=== PATIENT | female | born 1975 | race African-American/Black ===

== ENCOUNTER 2017-10-29 22:33 | Emergency (ER) | payer SELFPAY ==
--- OUTSIDE RECORDS SUMMARY | 2017-10-29 22:36 | XMS REPORT | Clinical Summary ---
:1975 Author Organization [facility] Address [address] [place] [address] Phone Care Team Providers Name Role Phone Unavailable Primary Care Provider Unavailable Allergies No Known Allergies Current Medications Prescription Sig. Disp. Refills Start Date End Date Status albuterol Take 2.5 mg by Active (PROVENTIL) 2.5 mg nebulization every /3 mL (0.083 %) 6 (six) hours as nebulizer solution needed for Wheezing. traMADol (ULTRAM) Take 1 tablet (50 20 tablet 0 02/17/2017 02/27/2017 50 mg tablet mg total) by mouth every 8 (eight) hours as needed for Pain for up to 10 days. Max Daily Amount: 150 mg nitrofurantoin, Take 1 capsule 14 capsule 0 02/17/2017 02/24/2017 macrocrystal-monohy (100 mg total) by drate, (MACROBID) mouth 2 (two) 100 MG capsule times daily for 7 days. Active Problems Not on file Encounters Date Type Specialty Care Team Description 02/17/2017 Emergency Emergency Medicine Domitila Ruiz Lower abdominal pain MD Ailyn (Primary Dx);Urinary Rod Martinez, tract infection without hematuria, site unspecified after 10/28/2016 Immunizations Name Dates Previously Given Next Due Tdap 01/27/2016 Social History Tobacco Use Types Packs/Day Years Used Date Current Every Day Smoker 0.5 10 Alcohol Use Drinks/Week oz/Week Comments No Sex Assigned at Date Recorded Not on file Last Filed Vital Signs Vital Sign Reading Time Taken Blood Pressure 134/82 02/17/2017 10:38 AM CDT Pulse 48 02/17/2017 10:38 AM CDT Temperature 37 C (98.6 F) 02/17/2017 10:38 AM CDT Respiratory Rate 20 02/17/2017 10:38 AM CDT Oxygen Saturation 98% 02/17/2017 10:38 AM CDT Inhaled Oxygen Concentration - - Weight 54.6 kg (120 lb 5 oz) 02/17/2017 6:13 AM CDT Height - - Body Mass Index - - Plan of Treatment Not on file Results CT abdomen/pelvis with IV contrast (02/17/2017 9:55 AM) Specimen Performing Laboratory RIS Narrative FINAL REPORT TECHNIQUE: CT of the abdomen and pelvis WITH intravenous contrast and WITH oral contrast. Dose modulation, iterative reconstruction, and/or weight-based adjustment of the mA/kV was utilized to reduce the radiation dose to as low as reasonably achievable. INDICATION: 41-year-old woman with right lower quadrant pain. COMPARISON: None. FINDINGS: LOWER THORAX: Unremarkable. HEPATOBILIARY: 1 cm hypodense lesion in segment with density greater than simple fluid. Additional subcentimeter hypodensity in the hepatic dome is too small to characterize. Gallbladder is unremarkable. No biliary ductal dilatation. SPLEEN: No splenomegaly. PANCREAS: No focal masses or ductal dilatation. ADRENALS: No adrenal nodules. KIDNEYS/URETERS: No hydronephrosis, stones, or solid mass lesions. PELVIC ORGANS/BLADDER: Unremarkable. PERITONEUM/RETROPERITONEUM: No free air or fluid. LYMPH NODES: No lymphadenopathy. VESSELS: Unremarkable. GI TRACT: No distention or wall thickening. Normal appendix. BONES AND SOFT TISSUES: Unremarkable. IMPRESSION: No acute abnormalities in the abdomen and pelvis. 1 cm hypodensity in the right liver may be a debris-containing cyst, but is incompletely characterized. Additional subcentimeter hepatic hypodensity is too small for characterization. RECOMMENDATION: Contrast-enhanced abdomen MRI (liver protocol) may be obtained to further characterize hypodensities in the liver. Signed: Ashlyn Thomas MD Report Verified Date/Time:02/17/2017 10:26:22 Reading Location: [facility] C013Y CT Body Reading Room Procedure Note Interface, External Ris In - 02/17/2017 10:28 AM CDT FINAL REPORT TECHNIQUE: CT of the abdomen and pelvis WITH intravenous contrast and WITH oral contrast. Dose modulation, iterative reconstruction, and/or weight-based adjustment of the mA/kV was utilized to reduce the radiation dose to as low as reasonably achievable. INDICATION: 41-year-old woman with right lower quadrant pain. COMPARISON: None. FINDINGS: LOWER THORAX: Unremarkable. HEPATOBILIARY: 1 cm hypodense lesion in segment with density greater than simple fluid. Additional subcentimeter hypodensity in the hepatic dome is too small to characterize. Gallbladder is unremarkable. No biliary ductal dilatation. SPLEEN: No splenomegaly. PANCREAS: No focal masses or ductal dilatation. ADRENALS: No adrenal nodules. KIDNEYS/URETERS: No hydronephrosis, stones, or solid mass lesions. PELVIC ORGANS/BLADDER: Unremarkable. PERITONEUM/RETROPERITONEUM: No free air or fluid. LYMPH NODES: No lymphadenopathy. VESSELS: Unremarkable. GI TRACT: No distention or wall thickening. Normal appendix. BONES AND SOFT TISSUES: Unremarkable. IMPRESSION: No acute abnormalities in the abdomen and pelvis. 1 cm hypodensity in the right liver may be a debris-containing cyst, but is incompletely characterized. Additional subcentimeter hepatic hypodensity is too small for characterization. RECOMMENDATION: Contrast-enhanced abdomen MRI (liver protocol) may be obtained to further characterize hypodensities in the liver. Signed: Ashlyn Thomas MD Report Verified Date/Time: 02/17/2017 10:26:22 Reading Location: [facility] C013Y CT Body Reading Room with platelet count + automated diff (02/17/2017 6:57 AM) Component Value Ref Range WBC 13.3 (H) 4.0 - 10.0 10e3/L RBC 3.57 (L) 4.00 - 5.00 10e6/L Hemoglobin 11.7 (L) 12.0 - 15.0 g/dL Hematocrit 35.3 (L) 36.0 - 45.0 % MCV 98.9 82.0 - 99.0 fL MCH 32.9 27.0 - 33.0 pg MCHC 33.3 32.0 - 36.0 g/dL RDW 12.4 10.3 - 14.2 % Platelets 295 150 - 430 10e3/L MPV 6.9 6.5 - 10.5 fL % Neutros 80 % % Lymphs 14 % % Monos 5 % % Eos 1 % % Baso 1 % # Neutros 10.59 (H) 1.80 - 8.00 10e3/L # Lymphs 1.79 1.48 - 4.50 10e3/L # Monos 0.64 0.00 - 1.30 10e3/L # Eos 0.17 0.00 - 0.50 10e3/L # Baso 0.07 0.00 - 0.20 10e3/L Specimen Performing Laboratory Blood - Arm, [facility], [facility], [facility] [address] [place] [phone] CBC with platelet count + automated diff (02/17/2017 6:57 AM) Specimen Performing Laboratory Blood Narrative The following orders were created for panel order CBC with platelet count + automated diff. Procedure Abnormality Status --------- ------ CBC with platelet count ...[[id number]]AbnormalFinal result Please view results for these tests on the individual orders. Basic Metabolic Panel (02/17/2017 6:57 AM) Component Value Ref Range Sodium 136 135 - 148 meq/L Potassium 3.8 3.6 - 5.5 meq/L Chloride 105 98 - 106 meq/L CO2 26 24 - 32 meq/L BUN 7 (L) 10 - 26 mg/dL Creatinine 0.53 0.50 - 1.20 mg/dL Glucose 103 70 - 110 mg/dL Calcium 9.4 8.5 - 10.5 mg/dL EGFR 156Comment: ESTIMATED GFR IS NOT ACCURATE mL/min/1.73 sq m CREATININE CLEARANCE IN PREDICTING GLOMERULAR FILTRATION RATE. ESTIMATED GFR IS NOT APPLICABLE FOR DIALYSIS PATIENTS. Specimen Performing Laboratory Blood - Arm, [facility], [facility], [facility] [address] [place] [phone] screen, urine (02/17/2017 6:29 AM) Component Value Ref Range Preg Test, Ur Negative Specimen Performing Laboratory Urine - Urine, Clean Catch [facility], [facility], [facility] [address] [place] [phone] Urinalysis w/Microscopic - Clean Catch (02/17/2017 6:29 AM) Component Value Ref Range Color, UA Yellow Clarity, UA Clear Specific [place], UA 1.025 1.001 - 1.035 pH, UA 6.0 5.0 - 8.0 Protein, UA Trace (A) Negative Glucose, UA Negative Negative Ketones, UA Negative Negative Bilirubin, UA Negative Negative Blood, UA Trace (A) Negative Nitrite, UA Positive (A) Negative Leukocytes, UA Trace (A) Negative Urobilinogen, UA 1.0 0.2 - 1.0 mg/dL Bacteria, UA Many Mucus Many RBC, UA <5 /HPF WBC, UA 10-20 /HPF SQUAMOUS EPITHELIAL <5 /HPF Specimen Source Specimen Performing Laboratory Urine - Urine, Clean Catch [facility], [facility], [facility] [address] [place] [phone] after 10/28/2016
--- OUTSIDE RECORDS SUMMARY | 2017-10-29 22:36 | XMS REPORT ---
:1975 Author Organization [facility] Address [address] [place] [address] Care Team Providers Name Role Phone DEMARIO SANCHEZ Unavailable Unavailable Problems This patient has no known problems. Allergies, Adverse Reactions, Alerts This patient has no known allergies or adverse reactions. Medications This patient has no known medications. Results Test Description Test Time Test Comments Text Results Atomic Results Result Comments CT, ABDOMEN 2017-02-17 Reason for FINAL REPORT 10:26:00 exam:->abdominal TECHNIQUE: CT of the abdomen and painIs the patient pelvis WITH intravenous contrast and ?->NoWhat is WITH oral contrast. Dose modulation, the patient's iterative reconstruction, and/or sedation weight-based adjustment of the mA/kV requirement?->No was utilized to reduce the radiation Sedation dose to as low as reasonably achievable. INDICATION: 41-year-old woman with right lower quadrant pain. COMPARISON: None. FINDINGS: LOWER THORAX: Unremarkable. HEPATOBILIARY: 1 cm hypodense lesion in segment with density greater than simple fluid. Additional subcentimeter hypodensity in the hepatic dome is too small to characterize. Gallbladder is unremarkable. No biliary ductal dilatation.SPLEEN: No splenomegaly.PANCREAS: No focal masses or ductal dilatation. ADRENALS: No adrenal nodules.KIDNEYS/URETERS: No hydronephrosis, stones, or solid mass lesions.PELVIC ORGANS/BLADDER: Unremarkable. PERITONEUM/RETROPERITONEUM: No free air or fluid.LYMPH NODES: No lymphadenopathy.VESSELS: Unremarkable. GI TRACT: No distention or wall thickening. Normal appendix. BONES AND SOFT TISSUES: Unremarkable. IMPRESSION:No acute abnormalities in the abdomen and pelvis. 1 cm hypodensity in the right liver may be a debris-containing cyst, but is incompletely characterized. Additional subcentimeter hepatic hypodensity is too small for characterization. RECOMMENDATION:Contrast-enhanced abdomen MRI (liver protocol) may be obtained to further characterize hypodensities in the liver. Signed: Ashlyn Thomas MDReport Verified Date/Time: 02/17/2017 10:26:22 Reading Location: [facility] C013Y CT Body Reading Room C METABOLIC PANEL 2017-02-17 07:14:00 Test Item Value Reference Range Comments SODIUM (BEAKER) (test 136 meq/L 135-148 vrzj=433) POTASSIUM (BEAKER) (test 3.8 meq/L 3.6-5.5 ejqg=620) CHLORIDE (BEAKER) (test 105 meq/L 98-106 ldyi=034) CO2 (BEAKER) (test 26 meq/L 24-32 ypdj=264) BLOOD UREA NITROGEN 7 mg/dL 10-26 (BEAKER) (test crpm=414) CREATININE (BEAKER) (test 0.53 mg/dL 0.50-1.20 manj=138) GLUCOSE RANDOM (BEAKER) 103 mg/dL 70-110 (test kyev=620) CALCIUM (BEAKER) (test 9.4 mg/dL 8.5-10.5 cggx=008) EGFR (BEAKER) (test 156 mL/min/1.73 sq m ESTIMATED GFR IS NOT ugat=9234) ACCURATE CREATININE CLEARANCE IN PREDICTING GLOMERULAR FILTRATION RATE. ESTIMATED GFR IS NOT APPLICABLE FOR DIALYSIS PATIENTS. CBC W/PLT COUNT & AUTO [id number] 07:10:00 Test Item Value Reference Range Comments WHITE BLOOD CELL COUNT (BEAKER) (test 13.3 10e3/ L 4.0-10.0 tycy=917) RED BLOOD CELL COUNT (BEAKER) (test elaq=379) 3.57 10e6/ L 4.00-5.00 HEMOGLOBIN (BEAKER) (test stvc=099) 11.7 g/dL 12.0-15.0 HEMATOCRIT (BEAKER) (test eawe=506) 35.3 % 36.0-45.0 MEAN CORPUSCULAR VOLUME (BEAKER) (test 98.9 fL 82.0-99.0 oleb=418) MEAN CORPUSCULAR HEMOGLOBIN (BEAKER) (test 32.9 pg 27.0-33.0 hqcn=685) MEAN CORPUSCULAR HEMOGLOBIN CONC (BEAKER) 33.3 g/dL 32.0-36.0 (test rqwc=485) RED CELL DISTRIBUTION WIDTH (BEAKER) (test 12.4 % 10.3-14.2 gazv=050) PLATELET COUNT (BEAKER) (test aggz=058) 295 10e3/ L 150-430 MEAN PLATELET VOLUME (BEAKER) (test cllo=643) 6.9 fL 6.5-10.5 NEUTROPHILS RELATIVE PERCENT (BEAKER) (test 80 % nmkp=084) LYMPHOCYTES RELATIVE PERCENT (BEAKER) (test 14 % rugd=919) MONOCYTES RELATIVE PERCENT (BEAKER) (test 5 % idvt=948) EOSINOPHILS RELATIVE PERCENT (BEAKER) (test 1 % tshc=550) BASOPHILS RELATIVE PERCENT (BEAKER) (test 1 % wvzn=750) NEUTROPHILS ABSOLUTE COUNT (BEAKER) (test 10.59 10e3/ L 1.80-8.00 zdtg=175) LYMPHOCYTES ABSOLUTE COUNT (BEAKER) (test 1.79 10e3/ L 1.48-4.50 ewkl=744) MONOCYTES ABSOLUTE COUNT (BEAKER) (test 0.64 10e3/ L 0.00-1.30 vbak=003) EOSINOPHILS ABSOLUTE COUNT (BEAKER) (test 0.17 10e3/ L 0.00-0.50 bzrb=648) BASOPHILS ABSOLUTE COUNT (BEAKER) (test 0.07 10e3/ L 0.00-0.20 pxjj=784) URINALYSIS W/ [id number] 06:56:00 Test Item Value Reference Range Comments COLOR (BEAKER) (test nugp=624) Yellow CLARITY (BEAKER) (test hurk=117) Clear SPECIFIC GRAVITY UA (BEAKER) (test jfir=925) 1.025 1.001-1.035 PH UA (BEAKER) (test wiro=321) 6.0 5.0-8.0 PROTEIN UA (BEAKER) (test nutx=041) Trace Negative GLUCOSE UA (BEAKER) (test sevi=458) Negative Negative KETONES UA (BEAKER) (test bwyk=114) Negative Negative BILIRUBIN UA (BEAKER) (test pmxw=563) Negative Negative BLOOD UA (BEAKER) (test zpmm=976) Trace Negative NITRITE UA (BEAKER) (test buts=073) Positive Negative LEUKOCYTE ESTERASE UA (BEAKER) (test tzbw=053) Trace Negative UROBILINOGEN UA (BEAKER) (test nnet=372) 1.0 mg/dL 0.2-1.0 BACTERIA (BEAKER) (test ztqn=566) Many MUCUS (BEAKER) (test qxfk=5819) Many RBC UA-MANUAL (BEAKER) (test riuw=2101) <5 /HPF WBC UA-MANUAL (BEAKER) (test zcvv=4836) 10-20 /HPF SQUAMOUS EPITHELIAL MANUAL (BEAKER) (test <5 /HPF tmzc=2993) SOURCE(BEAKER) (test yuss=5720) SCREEN, [id number] 06:55:00 Test Item Value Reference Range Comments TEST URINE (BEAKER) (test zqhn=964) Negative
[2017-10-29 23:24] LABS: Urine Glucose NEGATIVE (NEG)
[2017-10-29 23:25] LABS: Urine Blood NEGATIVE (NEG); Urine Protein NEGATIVE (NEG); Urine pH 6.5 (5.0-7.0)
[2017-10-29 23:45] LABS: Absolute Monocytes 0.7 K/uL (0.1-1.3); Absolute Neutrophil 4.6 K/uL (1.8-8.0); Basophils % 0.6 % (0-1.3); Eosinophils % 2.3 % (0-4.4); Hematocrit 44.3 % (36.0-45.0); Lymphocytes % 41.7 % (15.3-44.8); MCH 32.9 pg (27.0-35.0); MCV 98.3 fL (80-100); MPV 8.2 fL (7.6-11.3); Monocytes % 7.5 % (3.3-12.3)
[2017-10-29 23:53] LABS: Protime INR 0.91
[2017-10-29 23:58] LABS: Barbiturates NEGATIVE (NEGATIVE); Benzodiazepines NEGATIVE (NEGATIVE); Cocaine POSITIVE (NEGATIVE); METHAMPHETAM NEGATIVE (NEGATIVE); Methadone NEGATIVE (NEGATIVE); Opiates NEGATIVE (NEGATIVE); Phencyclidine NEGATIVE (NEGATIVE); THC Cannibis POSITIVE (NEGATIVE)
[2017-10-30] MEDS ORDERED: ONDANSETRON 4 MG (ODT) TAB ONE (00:01)
[2017-10-30 00:14] LABS: ALT/SGPT 26 U/L (12-78); AST/SGOT 22 U/L (15-37); Albumin 3.6 g/dL (3.4-5.0); Alcohol Serum/Plasma 27 mg/dL (0-3); Alkaline Phosphatase 66 U/L (45-117); BUN Blood Urea Nitrogen 11 mg/dL (7-18); Bicarbonate 29 mmol/L (21-32); Bilirubin Direct < 0.1 mg/dL (0-0.2); Bilirubin Total 0.2 mg/dL (0.2-1.0); Glucose Level 79 mg/dL (74-106); Potassium 3.9 mmol/L (3.5-5.1); Protein, Total 7.9 g/dL (6.4-8.2); Sodium Level 137 mmol/L (136-145)
--- NOTE | 2017-10-30 05:08 | ER ---
Nurse's Notes [facility] Name: Greta Bates Age: 42 yrs Sex: Female : 1975 Arrival Date: 10/29/2017 Time: 22:37 Bed 5 Private MD: Diagnosis: Alcohol abuse with intoxication;Abuse of non-psychoactive substances;Cocaine abuse;Major depressive disorder, recurrent;Suicidal ideations Presentation: 10/29 22:35 Presenting complaint: Patient states: that she has been very depressed for the past fc month and just does not know what to do anymore. Thinks she needs help. Transition of care: patient was not received from another setting of care. Onset of symptoms was August 2017. Risk Assessment: Do you want to hurt yourself or someone else? Patient reports desire/thoughts of hurting themselves or someone else. Provider notified. Initial Sepsis Screen: Does the patient meet any 2 criteria? HR > 90 bpm. Yes Does the patient have a suspected source of infection? No. Patient's initial sepsis screen is negative. Care prior to arrival: None. 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 - Social history:: Smoking status: Patient uses tobacco products, smokes one-half pack cigarettes per day, Patient uses alcohol, occasionally. street drugs, marijuana, methylenedioxymethamphetamine. - Ebola Screening: : Patient negative for fever greater than or equal to 101.5 degrees Fahrenheit, and additional compatible Ebola Virus Disease symptoms Patient denies exposure to infectious person Patient denies travel to an Ebola-affected area in the 21 days before illness onset. Screenin/30 22:55 Abuse screen: Denies threats or abuse. Nutritional screening: No deficits noted. fc Tuberculosis screening: No symptoms or risk factors identified. Fall Risk None identified. Assessment: 23:02 General: Appears in no apparent distress. slender, Behavior is cooperative, anxious, bb crying. Pain: Complains of pain in knee pain. Neuro: Level of Consciousness is awake, alert, obeys commands, Oriented to person, place, time, situation, Speech is normal. Cardiovascular: Heart tones S1 S2 present Capillary refill < 3 seconds Patient's skin is warm and dry. Pulses are all present. Respiratory: Respiratory effort is even, unlabored, Respiratory pattern is regular, Breath sounds are clear bilaterally. GI: No signs and/or symptoms were reported involving the gastrointestinal system. Derm: Skin is dry, Skin is normal, Skin temperature is warm. Musculoskeletal: Circulation, motion, and sensation intact. 10/30 00:42 Reassessment: No changes from previously documented assessment. pt resting quietly warm bb blankets given, lights dimmed. 01:44 Reassessment: pt resting quietly, resp unlabored, no signs of discomfort noted, pt bb awaiting evaluation by [facility] phone representative,. 04:17 Reassessment: [facility] at bedside to evaluate patient. lp1 05:24 Reassessment: Patient is alert, oriented x 3, equal unlabored respirations, skin lp1 warm/dry/pink. Patient discharged at this time, calling sister for ride home. 06:21 Reassessment: Patient states speaking with sister, she is on the way to come pick her lp1 up. 08:00 Reassessment: Patient appears in no apparent distress at this time. No changes from previously documented assessment. Patient is alert, oriented x 3, equal unlabored respirations, skin warm/dry/pink. 11:21 Reassessment: Patient appears in no apparent distress at this time. No changes from previously documented assessment. Patient is alert, oriented x 3, equal unlabored respirations, skin warm/dry/pink. Psych: 10/29 22:55 Subjective: Patient's mood is sad, hopeless. Objective: Patient is cooperative, Speech fc is normal, Affect is flat. Interventions: Removed personal items and placed in bag. Patient placed in hospital gown. Urine collected and sent for urine drug test. Belonging list filled out. Suicide Risk Assessment: Sad Person Scale: Sex of patient: Female: Score 0 points. Age of patient: Score 0 point if patient falls outside of specified age parameters. Depression: Score 1 point if signs of depression are present. Previous Attempt: Score 0 point if patient has not previously attempted suicide. Substance Abuse: Score 1 point if patient abuses alcohol or drugs. Rational Thinking: Score 1 point if patient is lacking rational thinking. Social Support: Score 1 point if social support is lacking and/or unavailable. Organized Plan: Score 0 if patient did not have an organized plan in place. Relationship: Score 1 point if patient is , , , or for a single male Chronic Sickness: Score 0 point if patient does not have a chronic illness, debilitating, or severe disorder. TOTAL POINTS: If total points are 5-6, proposed clinical action is to strongly consider hospitalization, depending upon confidence in the follow-up arrangement. Implement suicide precautions. Safety Checks: Personal items have been removed. Door is open. No visitors are present at this time. Patient uses marijuana Extascy. 10/30 05:27 Commitment: Outpatient follow-up with [facility]. lp1 Vital Signs: 10/29 22:35 BP 183 / 126; Pulse 92; Resp 18; Temp 99.0(O); Pulse Ox 98% on R/A; Weight 58.97 kg fc (R); Height 5 ft. 1 in. (154.94 cm) (R); Pain 7/10; 10/30 00:40 BP 149 / 90; Pulse 70; Resp 18; Pulse Ox 100% ; ms 03:31 BP 127 / 80; Pulse 76; Resp 20; Pulse Ox 100% on R/A; ks6 05:13 BP 135 / 84; Pulse 66; Resp 18; Pulse Ox 100% on R/A; ks6 10/29 22:35 Body Mass Index 24.56 (58.97 kg, 154.94 cm) ED Course: 10/29 22:35 Arm band placed on Patient placed in an exam room, on a stretcher. fc 22:37 Patient arrived in ED. al2 22:45 Safety checks: Items removed: yes. Door open/sign placed on door: yes. Family/friend ks6 present: no. 22:53 Triage completed. fc 22:55 Patient has correct armband on for positive identification. Placed in gown. Bed in low fc position. Call light in reach. 22:55 No provider procedures requiring assistance completed. fc 23:00 Safety checks: Items removed: yes. Door open/sign placed on door: yes. Family/friend ks6 present: no. 23:01 Marlen Mason NP is PHCP. rh1 23:01 Héctor Monroe MD is Attending Physician. rh1 23:02 Yaz Harding, MATIAS is Primary Nurse. bb 23:15 Safety checks: Items removed: yes. Door open/sign placed on door: yes. Family/friend ks6 present: no. 23:30 Safety checks: Items removed: yes. Door open/sign placed on door: yes. Family/friend ks6 present: no. 23:31 Urine --Ancillary (enter results) Sent. bb 23:31 Urine Dipstick--Ancillary (enter results) Sent. bb 23:45 Safety checks: Items removed: yes. Door open/sign placed on door: yes. Family/friend ms present: no. 10/30 00:00 Safety checks: Items removed: yes. Door open/sign placed on door: yes. Family/friend ms present: no. 00:13 EKG done, by ED staff, reviewed by Héctor Monroe MD. ms 00:15 Safety checks: Items removed: yes. Door open/sign placed on door: yes. Family/friend ms present: no. 00:20 called and spoke with Precious at the [facility] , she will call out one of her eb screeners emergency telecommunications dispatcher to come evaluate the patient. 00:22 Safety checks: Items removed: Other: pt belongings given to pt sister Марина Salvador to ms take home. 00:30 Safety checks: Items removed: yes. Door open/sign placed on door: yes. Family/friend ms present: no. 00:33 Diet: Patient given a regular meal tray. Patient given juice. ms 00:45 Safety checks: Items removed: yes. Door open/sign placed on door: yes. Family/friend ms present: no. 00:56 Krista peña [facility] Screener called and said she will be up here shortly. eb 01:00 Safety checks: Items removed: yes. Door open/sign placed on door: yes. Family/friend ms present: no. 01:15 Safety checks: Items removed: yes. Door open/sign placed on door: yes. Family/friend ms present: no. 01:30 Safety checks: Items removed: yes. Door open/sign placed on door: yes. Family/friend ms present: no. 01:45 Safety checks: Items removed: yes. Door open/sign placed on door: yes. Family/friend ms present: no. 02:00 Safety checks: Items removed: yes. Door open/sign placed on door: yes. Family/friend ms present: no. 02:15 Safety checks: Items removed: yes. Door open/sign placed on door: yes. Family/friend ms present: no. 02:30 Safety checks: Items removed: yes. Door open/sign placed on door: yes. Family/friend ms present: no. 02:45 Safety checks: Items removed: yes. Door open/sign placed on door: yes. Family/friend ms present: no. 03:00 Safety checks: Items removed: yes. Door open/sign placed on door: yes. Family/friend ms present: no. 03:15 Safety checks: Items removed: yes. Door open/sign placed on door: yes. Family/friend ms present: no. 03:25 Safety checks: Items removed: yes. Door open/sign placed on door: yes. Family/friend ms present: no. 03:36 called the [facility] to check on an ETA of Krista and according to Avani prather eb is in route and will be here shortly. 03:40 Safety checks: Items removed: yes. Door open/sign placed on door: yes. Family/friend ks6 present: no. 04:15 Krista from [facility] here to screen the patient. francesco 04:25 [facility] screener at bedside. ks6 05:01 Safety checks: Items removed: yes. Door open/sign placed on door: yes. Family/friend ks6 present: no. [facility] screener out of the room. 05:25 IV discontinued, No redness/swelling at site. Pressure dressing applied. lp1 Administered Medications: No medications were administered Outcome: 05:08 Discharge ordered by . emory 05:27 Discharged to home lp1 05:27 Condition: good 05:27 Discharge instructions given to patient, Instructed on discharge instructions, follow up and referral plans. Demonstrated understanding of instructions, follow-up care. 11:20 Patient left the ED. sv Signatures: Tete Sprague RN RN sv Anderson, Corey, MD MD cha Chretien, Felicia, RN RN fc Ballard, Brenda, RN RN bb Solis, Maria ms Pena, Laura, RN RN lp1 Marlen Mason MANAGER SERVICING MANAGER SERVICING vero1 Marie Ching al2 Agnieszka Dwyer Kyle ks6
--- NOTE | 2017-10-30 05:08 | EDPHYS ---
Physician Documentation [facility] Name: Greta Bates Age: 42 yrs Sex: Female : 1975 Arrival Date: 10/29/2017 Time: 22:37 Bed 5 Private MD: ED Physician Héctor Monroe HPI: 10/29 23:03 This 42 yrs old Black Female presents to ER via Ambulatory with complaints of Suicidal rh1 Ideation. 23:03 The patient presents to the emergency department with anxiety, depression, suicide rh1 ideation, and the patient has a plan, to walk into a car. Onset: The symptoms/episode began/occurred 3 month(s) ago. Past psychiatric history: Prior diagnosis: depression, Psychiatric medications include: Gloria, Primary psychiatric physician: the patient does not have a primary psychiatric physician, the patient has not had a prior suicide gesture, the patient has a previous inpatient psychiatric history, 2006. Associated signs and symptoms: Pertinent positives; anxiety, depression, suicide ideation, Pertinent negatives: abdominal pain, chest pain, delusions, fever, homicidal ideation, palpitations, shortness of breath, vomiting. Severity of symptoms: At their worst the symptoms were moderate in the emergency department the symptoms are unchanged. The patient has experienced similar episodes in the past. The patient has not recently seen a physician. Pt. reports she has had increased stress in her life, and is struggling with depression. Reports over the past several months this has gotten worse, and "it's one thing after another." She reports having SI, and thinking about jumping into traffic. She denies feeling suicidal at this time, but is concerned she sometimes is having those types of thoughts. Denies any HI, AVH.. 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 - Social history:: Smoking status: Patient uses tobacco products, smokes one-half pack cigarettes per day, Patient uses alcohol, occasionally. street drugs, marijuana, methylenedioxymethamphetamine. - Ebola Screening: : Patient negative for fever greater than or equal to 101.5 degrees Fahrenheit, and additional compatible Ebola Virus Disease symptoms Patient denies exposure to infectious person Patient denies travel to an Ebola-affected area in the 21 days before illness onset. ROS: 10/29 23:03 Constitutional: Negative for fever rh1 ENT: Negative for rhinorrhea, sinus congestion, sore throat. Cardiovascular: Negative for chest pain. Respiratory: Negative for cough, shortness of breath. Abdomen/GI: Negative for abdominal pain, nausea, vomiting, and diarrhea. MS/extremity: Negative for pain. Skin: Negative for rash. Neuro: Negative for altered mental status, dizziness, headache. Psych: Positive for anxiety, depression, suicidal ideation. Exam: 23:03 Constitutional: This is a well developed, well nourished patient who is awake, alert, rh1 and in no acute distress. Head/Face: Normocephalic, atraumatic. ENT: Nares patent. No nasal discharge, no septal abnormalities noted. Tympanic membranes are normal and external auditory canals are clear. Oropharynx with no redness, swelling, or masses, exudates, or evidence of obstruction, uvula midline. Mucous membranes moist. Neck: Trachea midline, and no cervical lymphadenopathy. Supple, full range of motion without nuchal rigidity. No Meningismus. Chest/axilla: Normal chest wall appearance and motion. Nontender with no deformity. No lesions are appreciated. Cardiovascular: Regular rate and rhythm with a normal S1 and S2. No gallops, murmurs, or rubs. No JVD. No pulse deficits. Respiratory: Lungs have equal breath sounds bilaterally, clear to auscultation. No rales, rhonchi or wheezes noted. No increased work of breathing. Abdomen/GI: Soft, non-tender, with normal bowel sounds. No distension. No guarding or rebound. No evidence of tenderness throughout. Back: No spinal tenderness. No costovertebral tenderness. Full range of motion. Skin: Warm, dry with normal turgor. Normal color with no rashes, no lesions, and no evidence of cellulitis. MS/ Extremity: Pulses equal, no cyanosis. Neurovascular intact. Full, normal range of motion. 23:03 Eyes: Pupils: no acute changes, normal size, normal reaction to light, equal, right pupil is approximately 3 mm(s), left pupil is approximately 3 mm(s), Extraocular movements: intact throughout. 23:03 Neuro: Orientation: is normal, to person, place \\T\\ time. Mentation: is normal, lucid, able to follow commands, Motor: is normal, moves all fours, strength is 5/5 in all extremities, Sensation: is normal, no obvious gross deficits, Gait: is steady, at a normal pace, without difficulty. 23:03 Psych: Behavior/mood is pleasant, cooperative, tearful throughout examination. Affect is calm, Oriented to person, place, time, Patient having thoughts of suicide. Plan for suicide is jumping into traffic Judgement / Insight is normal. Memory is normal. Delusions/hallucinations are not present. Vital Signs: 22:35 BP 183 / 126; Pulse 92; Resp 18; Temp 99.0(O); Pulse Ox 98% on R/A; Weight 58.97 kg fc (R); Height 5 ft. 1 in. (154.94 cm) (R); Pain 7/10; 10/30 00:40 BP 149 / 90; Pulse 70; Resp 18; Pulse Ox 100% ; ms 03:31 BP 127 / 80; Pulse 76; Resp 20; Pulse Ox 100% on R/A; ks6 05:13 BP 135 / 84; Pulse 66; Resp 18; Pulse Ox 100% on R/A; ks6 10/29 22:35 Body Mass Index 24.56 (58.97 kg, 154.94 cm) MDM: 10/29 23:03 Patient medically screened. [facility] 10/30 00:17 Awaiting: Psychiatric clerical clerk. ED course: . 1 02:50 Transition of care: After a detail discussion of the patient's case, care is rh1 transferred to Héctor Monroe MD. 05:06 Data reviewed: vital signs, nurses notes, lab test result(s), EKG. [facility] 10/29 23:04 Order name: Urine Dipstick--Ancillary (enter results) 10/29 23:04 Order name: Urine --Ancillary (enter results) 10/29 23:04 Order name: Urine Dipstick-Ancillary; Complete Time: 23:29 EDAZ 10/29 23:04 Order name: Urine --Ancillary; Complete Time: 23:29 EDAZ 10/29 23:29 Order name: Acetaminophen; Complete Time: 00:17 10/29 23:29 Order name: Basic Metabolic Panel; Complete Time: 00:17 10/29 23:29 Order name: CBC with Diff; Complete Time: 00:10/29 23:29 Order name: ETOH Level; Complete Time: 00:10/29 23:29 Order name: Hepatic Function; Complete Time: 00:17 10/29 23:29 Order name: PT-INR; Complete Time: 00:10/29 23:29 Order name: Ptt, Activated; Complete Time: 00:10/29 23:29 Order name: Salicylate; Complete Time: 00:10/29 23:29 Order name: Urine Drug Screen; Complete Time: 00:10/29 23:29 Order name: EKG; Complete Time: 23:29 10/29 23:29 Order name: EKG - Nurse/Tech; Complete Time: 00:14 10/29 23:29 Order name: IV Saline Lock; Complete Time: 23:10/29 23:29 Order name: Labs collected and sent; Complete Time: 23:10/29 23:29 Order name: Urine Dipstick-Ancillary (obtain specimen); Complete Time: 23:30 rh1 Administered Medications: No medications were administered Disposition: 05:06 Co-signature as Attending Physician, Héctor Monroe MD I agree with the assessment and [facility] plan of care. Disposition: 10/30/17 05:08 Discharged to Home. Impression: Alcohol abuse with intoxication, Abuse of non-psychoactive substances, Cocaine abuse, Major depressive disorder, recurrent, Suicidal ideations. - Condition is Stable. - Discharge Instructions: Stimulant Use Disorder-Cocaine, Depression, Adult, Polysubstance Abuse, Helping Someone Who is Suicidal, No-harm Safety Contract, Depression, Adult, [id number]. - Medication Reconciliation Form, Thank You Letter, Antibiotic Education, Prescription Opioid Use form. - Follow up: Private Physician; When: 2 - 3 days; Reason: Recheck today's complaints, Continuance of care, Re-evaluation by your physician. - Problem is new. - Symptoms have improved. Signatures: Dispatcher [employer] Tete Mast RN RN sv Anderson, Corey, MD MD cha Chretien, Felicia, RN RN Flaquita Pruitt RN RN lp1 Marlen Mason NP RN RESOURCE NURSE rh1 Corrections: (The following items were deleted from the chart) 11:20 05:08 10/30/2017 05:08 Discharged to Home. Impression: Alcohol abuse with intoxication; sv Abuse of non-psychoactive substances; Cocaine abuse; Major depressive disorder, recurrent; Suicidal ideations. Condition is Stable. Forms are Medication Reconciliation Form, Thank You Letter, Antibiotic Education, Prescription Opioid Use. Follow up: Private Physician; When: 2 - 3 days; Reason: Recheck today's complaints, Continuance of care, Re-evaluation by your physician. Problem is new. Symptoms have improved. emory
--- NOTE | 2017-10-30 06:19 | EKG ---
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
== END 2017-10-30 11:20 | disposition home or self-care (01) ==
LOC: ER 22:33
DX: F33.9 Major depressive disorder, recurrent, unspecified (principal); F14.10 Cocaine abuse, uncomplicated; F10.129 Alcohol abuse with intoxication, unspecified; F55.8 Abuse of other non-psychoactive substances; I10 Essential (primary) hypertension; F17.210 Nicotine dependence, cigarettes, uncomplicated
CPT/HCPCS: 36415; 80048; 80076; 80307; 80320; 80329; 81003; 81025; 85025; 85610; 85730; 93005; 99284

== ENCOUNTER 2018-01-18 10:21 | Emergency (ER) | payer SELFPAY ==
--- OUTSIDE RECORDS SUMMARY | 2018-01-18 10:23 | XMS REPORT ---
:1975 [facility] Address [address] [place] [address] Care Team Providers Name Role Phone DEMARIO [...] MDReport Verified Date/Time: 02/17/2017 10:26:22 Reading Location: [facility] C013Y CT Body Reading Room C METABOLIC PANEL 2017-02-17 07:14:00 Test Item Value Reference Range Comments SODIUM (BEAKER) (test 136 meq/L 135-148 wwko=167) POTASSIUM (BEAKER) (test 3.8 meq/L 3.6-5.5 wkau=252) CHLORIDE (BEAKER) (test 105 meq/L 98-106 hroz=195) CO2 (BEAKER) (test 26 meq/L 24-32 uivg=046) BLOOD UREA NITROGEN 7 mg/dL 10-26 (BEAKER) (test yiyz=272) CREATININE (BEAKER) (test 0.53 mg/dL 0.50-1.20 xsnu=733) GLUCOSE RANDOM (BEAKER) 103 mg/dL 70-110 (test oevh=963) CALCIUM (BEAKER) (test 9.4 mg/dL 8.5-10.5 nszw=713) EGFR (BEAKER) (test 156 mL/min/1.73 sq m ESTIMATED GFR IS NOT wjog=6182) ACCURATE CREATININE CLEARANCE IN PREDICTING GLOMERULAR FILTRATION RATE. ESTIMATED GFR IS NOT APPLICABLE FOR DIALYSIS PATIENTS. CBC W/PLT COUNT & AUTO [id number] 07:10:00 Test Item Value Reference Range Comments WHITE BLOOD CELL COUNT (BEAKER) (test 13.3 10e3/ L 4.0-10.0 iqbv=626) RED BLOOD CELL COUNT (BEAKER) (test icwp=371) 3.57 10e6/ L 4.00-5.00 HEMOGLOBIN (BEAKER) (test ramr=169) 11.7 g/dL 12.0-15.0 HEMATOCRIT (BEAKER) (test occl=218) 35.3 % 36.0-45.0 MEAN CORPUSCULAR VOLUME (BEAKER) (test 98.9 fL 82.0-99.0 uvnv=283) MEAN CORPUSCULAR HEMOGLOBIN (BEAKER) (test 32.9 pg 27.0-33.0 qxte=850) MEAN CORPUSCULAR HEMOGLOBIN CONC (BEAKER) 33.3 g/dL 32.0-36.0 (test dawr=192) RED CELL DISTRIBUTION WIDTH (BEAKER) (test 12.4 % 10.3-14.2 afil=633) PLATELET COUNT (BEAKER) (test cbzv=425) 295 10e3/ L 150-430 MEAN PLATELET VOLUME (BEAKER) (test ksdm=629) 6.9 fL 6.5-10.5 NEUTROPHILS RELATIVE PERCENT (BEAKER) (test 80 % bfsd=923) LYMPHOCYTES RELATIVE PERCENT (BEAKER) (test 14 % rbcb=731) MONOCYTES RELATIVE PERCENT (BEAKER) (test 5 % ipmd=935) EOSINOPHILS RELATIVE PERCENT (BEAKER) (test 1 % wakf=018) BASOPHILS RELATIVE PERCENT (BEAKER) (test 1 % rmxp=190) NEUTROPHILS ABSOLUTE COUNT (BEAKER) (test 10.59 10e3/ L 1.80-8.00 etvr=644) LYMPHOCYTES ABSOLUTE COUNT (BEAKER) (test 1.79 10e3/ L 1.48-4.50 phcl=427) MONOCYTES ABSOLUTE COUNT (BEAKER) (test 0.64 10e3/ L 0.00-1.30 wlel=068) EOSINOPHILS ABSOLUTE COUNT (BEAKER) (test 0.17 10e3/ L 0.00-0.50 jgrk=639) BASOPHILS ABSOLUTE COUNT (BEAKER) (test 0.07 10e3/ L 0.00-0.20 ruoo=013) URINALYSIS W/ [id number] 06:56:00 Test Item Value Reference Range Comments COLOR (BEAKER) (test gakc=699) Yellow CLARITY (BEAKER) (test wxkl=897) Clear SPECIFIC GRAVITY UA (BEAKER) (test bhzf=056) 1.025 1.001-1.035 PH UA (BEAKER) (test npka=648) 6.0 5.0-8.0 PROTEIN UA (BEAKER) (test ezhi=407) Trace Negative GLUCOSE UA (BEAKER) (test gjtj=357) Negative Negative KETONES UA (BEAKER) (test hjoi=584) Negative Negative BILIRUBIN UA (BEAKER) (test ukpk=192) Negative Negative BLOOD UA (BEAKER) (test gmey=365) Trace Negative NITRITE UA (BEAKER) (test splm=314) Positive Negative LEUKOCYTE ESTERASE UA (BEAKER) (test murf=886) Trace Negative UROBILINOGEN UA (BEAKER) (test grga=478) 1.0 mg/dL 0.2-1.0 BACTERIA (BEAKER) (test kfyl=454) Many MUCUS (BEAKER) (test srmf=2901) Many RBC UA-MANUAL (BEAKER) (test vpdo=3008) <5 /HPF WBC UA-MANUAL (BEAKER) (test xiir=5417) 10-20 /HPF SQUAMOUS EPITHELIAL MANUAL (BEAKER) (test <5 /HPF eevd=7311) SOURCE(BEAKER) (test venj=6927) SCREEN, [id number] 06:55:00 Test Item Value Reference Range Comments TEST URINE (BEAKER) (test qjtt=976) Negative
--- OUTSIDE RECORDS SUMMARY | 2018-01-18 10:23 | XMS REPORT | Clinical Summary ---
:1975 Author Organization [facility] Address [address] [place] [address] Phone Care Team Providers Name Role Phone [...] tract infection without hematuria, site unspecified after 01/17/2017 Immunizations Name Dates Previously Given Next Due [...] MD Report Verified Date/Time:02/17/2017 10:26:22 Reading Location: [facility] C013Y CT Body Reading Room Procedure Note [...] Report Verified Date/Time: 02/17/2017 10:26:22 Reading Location: [facility] C013Y CT Body Reading Room with platelet [...] 10e3/L Specimen Performing Laboratory Blood - Arm, [facility], [facility], [facility] [address] [place] [id number] CBC with platelet count + automated diff (02/17/2017 6:57 AM) Specimen Performing Laboratory Blood Narrative The following orders were created for panel order CBC with platelet count + automated diff. Procedure Abnormality Status --------- ------ CBC with platelet count ...[[id number]]AbnormalFinal result Please view results for these tests [...] PATIENTS. Specimen Performing Laboratory Blood - Arm, [facility], [facility], [facility] [address] [place] [phone] screen, urine (02/17/2017 6:29 AM) Component Value Ref Range Preg Test, Ur Negative Specimen Performing Laboratory Urine - Urine, Clean Catch [facility], [facility], [facility] [address] [place] [id number] Urinalysis w/Microscopic - Clean Catch (02/17/2017 6:29 AM) Component Value Ref Range Color, UA Yellow Clarity, UA Clear Specific [place], UA 1.025 1.001 - 1.035 pH, UA [...] Performing Laboratory Urine - Urine, Clean Catch [facility], [facility] [address] [place] [id number] after 01/17/2017
--- NOTE | 2018-01-18 11:28 | ER ---
Nurse's Notes [facility] Name: Greta Bates Age: 42 yrs Sex: Female : 1975 Arrival Date: 01/18/2018 Time: 10:22 Bed 11 Private MD: None, None Diagnosis: Dental caries;Facial cellulitis Presentation: 01/18 11:18 Presenting complaint: Patient states: pain and swelling to right lower jaw started iw yesterday. Transition of care: patient was not received from another setting of care. Onset of symptoms was January 18, 2018. Risk Assessment: Do you want to hurt yourself or someone else? Patient reports no desire to harm self or others. Initial Sepsis Screen: Does the patient meet any 2 criteria? No. Patient's initial sepsis screen is negative. Does the patient have a suspected source of infection? No. Patient's initial sepsis screen is negative. Care prior to arrival: None. 11:18 Method Of Arrival: Ambulatory iw 11:18 Acuity: SMITH 4 iw Triage Assessment: 11:45 General: Appears in no apparent distress. Behavior is calm, cooperative. 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 - Social history:: Smoking status: Patient uses tobacco products, smokes one-half pack cigarettes per day. - Family history:: not pertinent. - Ebola Screening: : Patient negative for fever greater than or equal to 101.5 degrees Fahrenheit, and additional compatible Ebola Virus Disease symptoms Patient denies exposure to infectious person Patient denies travel to an Ebola-affected area in the 21 days before illness onset No symptoms or risks identified at this time. - Hospitalizations: : No recent hospitalization is reported. Screenin:00 Abuse screen: Denies threats or abuse. Denies injuries from another. Nutritional iw screening: No deficits noted. Tuberculosis screening: No symptoms or risk factors identified. Fall Risk None identified. Assessment: 11:25 General: Appears in no apparent distress. comfortable, Behavior is calm, cooperative. iw Pain: Complains of pain in right cheek and right jaw. Neuro: Level of Consciousness is awake, alert, obeys commands, Oriented to person, place, time, situation, Moves all extremities. Full function. Cardiovascular: Patient's skin is warm and dry. Respiratory: Respiratory effort is even, unlabored, Respiratory pattern is regular, symmetrical. GI: Abdomen is flat, non-distended. Derm: Skin is intact, is healthy with good turgor. Musculoskeletal: Range of motion: intact in all extremities. Vital Signs: 11:19 BP 157 / 89; Pulse 79; Resp 16; Temp 98.2; Pulse Ox 98% on R/A; Pain 10/10; iw ED Course: 10:22 Patient arrived in ED. iw 10:22 None, None is Private Physician. iw 11:18 Ana Winkler RN is Primary Nurse. iw 11:19 Triage completed. iw 11:20 Arm band placed on. iw 11:20 Patient has correct armband on for positive identification. iw 11:22 Marty Cook MD is Attending Physician. rn 12:00 No provider procedures requiring assistance completed. Patient did not have IV access iw during this emergency room visit. Administered Medications: No medications were administered Outcome: 11:27 Discharge ordered by . rn 12:00 Discharged to home ambulatory. iw 12:00 Condition: good 12:00 Discharge instructions given to patient, Instructed on discharge instructions, follow up and referral plans. medication usage, Demonstrated understanding of instructions, follow-up care, medications, Prescriptions given X 1. 12:04 Patient left the ED. iw Signatures: Ana Winkler RN RN iw Marty Cook MD MD rn
--- NOTE | 2018-01-18 11:29 | EDPHYS ---
Physician Documentation [facility] Name: Greta Bates Age: 42 yrs Sex: Female : 1975 Arrival Date: 01/18/2018 Time: 10:22 Bed 11 Private MD: None, None ED Physician Marty Cook HPI: 01/18 11:22 This 42 yrs old Black Female presents to ER via Ambulatory with complaints of swollen rn area. 11:22 the patient presents with a swollen area of the right jaw. Description: swollen. Onset: rn The symptoms/episode began/occurred yesterday. Possible cause(s): unknown. Severity of symptoms: At their worst the symptoms were mild, in the emergency department the symptoms are unchanged. The patient has experienced a previous episode. Reports right facial swelling and pain since yesterday, has bad teeth, no trauma, no trouble swallowing or breathing, no drooling.. 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 - Social history:: Smoking status: Patient uses tobacco products, smokes one-half pack cigarettes per day. - Family history:: not pertinent. - Ebola Screening: : Patient negative for fever greater than or equal to 101.5 degrees Fahrenheit, and additional compatible Ebola Virus Disease symptoms Patient denies exposure to infectious person Patient denies travel to an Ebola-affected area in the 21 days before illness onset No symptoms or risks identified at this time. - Hospitalizations: : No recent hospitalization is reported. ROS: 11:22 Constitutional: Negative for fever, chills, and weight loss, ENT: + poor dentition rn right lower jaw, with erythema/ulceration along right lower gum line, no fluctuance, + buccal space swelling without fluctuance or firmness Neck: Negative for injury, pain, and swelling, Cardiovascular: Negative for chest pain, palpitations, and edema, Respiratory: Negative for shortness of breath, cough, wheezing, and pleuritic chest pain, Abdomen/GI: Negative for abdominal pain, nausea, vomiting, diarrhea, and constipation, MS/Extremity: Negative for injury and deformity, Skin: Negative for injury, rash, and discoloration, Neuro: Negative for headache, weakness, numbness, tingling, and seizure. Exam: 11:22 Constitutional: This is a well developed, well nourished patient who is awake, alert, rn and in no acute distress. Head/Face: Normocephalic, atraumatic. ENT: + poor dentition right lower jaw, with erythema/ulceration along right lower gum line, no fluctuance, + buccal space swelling without fluctuance or firmness Vital Signs: 11:19 BP 157 / 89; Pulse 79; Resp 16; Temp 98.2; Pulse Ox 98% on R/A; Pain 10/10; iw MDM: 11:22 Patient medically screened. rn 11:22 Differential diagnosis: abscess, cellulitis. Data reviewed: vital signs, nurses notes, rn and as a result, I will discharge patient. Counseling: I had a detailed discussion with the patient and/or guardian regarding: the historical points, exam findings, and any diagnostic results supporting the discharge/admit diagnosis, the need for outpatient follow up, to return to the emergency department if symptoms worsen or persist or if there are any questions or concerns that arise at home. Special discussion: I discussed with the patient/guardian in detail that at this point there is no indication for admission to the hospital. It is understood, however, that if the symptoms persist or worsen the patient needs to return immediately for re-evaluation. Based on the history and exam findings, there is no indication for further emergent testing or inpatient evaluation. I discussed with the patient/guardian the need to see a dentist for further evaluation of the symptoms. ED course: Likely early buccal cellulitis with subcentimeter area of gum swelling, no fluctuance, likely early phlegmon, spoke with patient, she prefers to try abx first instead of cutting and seeing today, will f/u with dentist or if worsens come back here for I\T\D. Administered Medications: No medications were administered Disposition: 01/18/18 11:27 Discharged to Home. Impression: Dental caries, Facial cellulitis. - Condition is Stable. - Discharge Instructions: Dental Pain. - Prescriptions for Clindamycin HCl 300 mg Oral Capsule - take 1 capsule by ORAL route every 6 hours for 10 days; 40 capsule. Ibuprofen 800 mg Oral Tablet - take 1 tablet by ORAL route every 12 hours As needed take with food; 20 tablet. - Work release form, Medication Reconciliation Form, Thank You Letter, Antibiotic Education, Prescription Opioid Use form. - Follow up: Private Physician; When: As needed; Reason: Recheck today's complaints, Re-evaluation by your physician. - Problem is new. - Symptoms have improved. Signatures: Ana Winkler RN RN iw Marty Cook MD MD fashion buying internship: (The following items were deleted from the chart) 12:04 11:27 01/18/2018 11:27 Discharged to Home. Impression: Dental caries; Facial iw cellulitis. Condition is Stable. Forms are Medication Reconciliation Form, Thank You Letter, Antibiotic Education, Prescription Opioid Use. Follow up: Private Physician; When: As needed; Reason: Recheck today's complaints, Re-evaluation by your physician. Problem is new. Symptoms have improved. rn
== END 2018-01-18 12:04 | disposition home or self-care (01) ==
LOC: ER 10:21
DX: L03.211 Cellulitis of face (principal); K02.9 Dental caries, unspecified
CPT/HCPCS: 99282

== ENCOUNTER 2018-02-19 20:17 | Emergency (ER) | payer SELFPAY ==
--- OUTSIDE RECORDS SUMMARY | 2018-02-19 20:20 | XMS REPORT ---
:1975 [facility] Address [address] [place] [address] Care Team Providers Name Role Phone DEMARIO [...] MDReport Verified Date/Time: 02/17/2017 10:26:22 Reading Location: [facility] B1 C013Y CT Body Reading Room C METABOLIC PANEL 2017-02-17 07:14:00 Test Item Value Reference Range Comments SODIUM (BEAKER) (test 136 meq/L 135-148 fvir=102) POTASSIUM (BEAKER) (test 3.8 meq/L 3.6-5.5 aeix=438) CHLORIDE (BEAKER) (test 105 meq/L 98-106 efkg=506) CO2 (BEAKER) (test 26 meq/L 24-32 rojq=030) BLOOD UREA NITROGEN 7 mg/dL 10-26 (BEAKER) (test jgld=798) CREATININE (BEAKER) (test 0.53 mg/dL 0.50-1.20 ugdb=633) GLUCOSE RANDOM (BEAKER) 103 mg/dL 70-110 (test jajr=267) CALCIUM (BEAKER) (test 9.4 mg/dL 8.5-10.5 plsg=710) EGFR (BEAKER) (test 156 mL/min/1.73 sq m ESTIMATED GFR IS NOT ikmz=2425) ACCURATE CREATININE CLEARANCE IN PREDICTING GLOMERULAR FILTRATION RATE. ESTIMATED GFR IS NOT APPLICABLE FOR DIALYSIS PATIENTS. CBC W/PLT COUNT & AUTO [id number] 07:10:00 Test Item Value Reference Range Comments WHITE BLOOD CELL COUNT (BEAKER) (test 13.3 10e3/ L 4.0-10.0 ytvs=815) RED BLOOD CELL COUNT (BEAKER) (test zovk=673) 3.57 10e6/ L 4.00-5.00 HEMOGLOBIN (BEAKER) (test ljqu=919) 11.7 g/dL 12.0-15.0 HEMATOCRIT (BEAKER) (test sfzy=710) 35.3 % 36.0-45.0 MEAN CORPUSCULAR VOLUME (BEAKER) (test 98.9 fL 82.0-99.0 gvil=496) MEAN CORPUSCULAR HEMOGLOBIN (BEAKER) (test 32.9 pg 27.0-33.0 vhdp=805) MEAN CORPUSCULAR HEMOGLOBIN CONC (BEAKER) 33.3 g/dL 32.0-36.0 (test osig=107) RED CELL DISTRIBUTION WIDTH (BEAKER) (test 12.4 % 10.3-14.2 hofm=704) PLATELET COUNT (BEAKER) (test refj=649) 295 10e3/ L 150-430 MEAN PLATELET VOLUME (BEAKER) (test mxpm=793) 6.9 fL 6.5-10.5 NEUTROPHILS RELATIVE PERCENT (BEAKER) (test 80 % hlho=680) LYMPHOCYTES RELATIVE PERCENT (BEAKER) (test 14 % fsnq=560) MONOCYTES RELATIVE PERCENT (BEAKER) (test 5 % dphu=597) EOSINOPHILS RELATIVE PERCENT (BEAKER) (test 1 % utjc=380) BASOPHILS RELATIVE PERCENT (BEAKER) (test 1 % ipjs=026) NEUTROPHILS ABSOLUTE COUNT (BEAKER) (test 10.59 10e3/ L 1.80-8.00 rmec=249) LYMPHOCYTES ABSOLUTE COUNT (BEAKER) (test 1.79 10e3/ L 1.48-4.50 pvnq=666) MONOCYTES ABSOLUTE COUNT (BEAKER) (test 0.64 10e3/ L 0.00-1.30 navm=066) EOSINOPHILS ABSOLUTE COUNT (BEAKER) (test 0.17 10e3/ L 0.00-0.50 zlrw=968) BASOPHILS ABSOLUTE COUNT (BEAKER) (test 0.07 10e3/ L 0.00-0.20 vwsl=920) URINALYSIS W/ [id number] 06:56:00 Test Item Value Reference Range Comments COLOR (BEAKER) (test gvbr=955) Yellow CLARITY (BEAKER) (test tjfh=865) Clear SPECIFIC GRAVITY UA (BEAKER) (test cvbq=626) 1.025 1.001-1.035 PH UA (BEAKER) (test tqzk=860) 6.0 5.0-8.0 PROTEIN UA (BEAKER) (test cvot=438) Trace Negative GLUCOSE UA (BEAKER) (test jtvt=501) Negative Negative KETONES UA (BEAKER) (test aprc=463) Negative Negative BILIRUBIN UA (BEAKER) (test xmkv=464) Negative Negative BLOOD UA (BEAKER) (test omzs=599) Trace Negative NITRITE UA (BEAKER) (test crdq=073) Positive Negative LEUKOCYTE ESTERASE UA (BEAKER) (test gdnk=485) Trace Negative UROBILINOGEN UA (BEAKER) (test omqb=249) 1.0 mg/dL 0.2-1.0 BACTERIA (BEAKER) (test krnb=469) Many MUCUS (BEAKER) (test sqqj=2401) Many RBC UA-MANUAL (BEAKER) (test mvgt=2122) <5 /HPF WBC UA-MANUAL (BEAKER) (test osfm=1995) 10-20 /HPF SQUAMOUS EPITHELIAL MANUAL (BEAKER) (test <5 /HPF zqwk=6765) SOURCE(BEAKER) (test laab=6928) SCREEN, [id number] 06:55:00 Test Item Value Reference Range Comments TEST URINE (BEAKER) (test uxhs=860) Negative
--- OUTSIDE RECORDS SUMMARY | 2018-02-19 20:20 | XMS REPORT | Clinical Summary ---
:1975 Author Organization [facility] Address [address] [place] [address] Phone Care Team Providers Name Role Phone [...] 7 days. Active Problems Not on file Immunizations Name Dates Previously Given Next Due Tdap 01/27/2016 Social History Tobacco Use Types Packs/Day Years Used Date Current Every Day Smoker 0.5 10 Alcohol Use Drinks/Week oz/Week Comments No Sex Assigned at Date Recorded Not on file Last Filed Vital Signs Not on file Plan of Treatment Not on file Results Not on fileafter 02/18/2017
[2018-02-19] MEDS ORDERED: HYDROCODONE/APAP 10/325 TAB ONE (21:04)
[2018-02-19] MEDS ORDERED: IBUPROFEN 400 MG TAB ONE (21:04)
--- NOTE | 2018-02-19 22:32 | ER ---
Nurse's Notes [facility] Name: Greta Bates Age: 42 yrs Sex: Female : 1975 Arrival Date: 02/19/2018 Time: 20:21 Bed 24 Private MD: Diagnosis: Sprain of unspecified site of right knee Presentation: 02/19 20:29 Presenting complaint: Patient states: "I fell and twisted my ankle and hurt my knee, aj1 and now I can't walk on it and I can't bend my knee and its starting to get swollen." Reports pain to right knee, decreased ROM to right knee. Transition of care: patient was not received from another setting of care. Onset of symptoms was February 19, 2018 at 15:00. Risk Assessment: Do you want to hurt yourself or someone else? Patient reports no desire to harm self or others. Initial Sepsis Screen: Does the patient meet any 2 criteria? No. Patient's initial sepsis screen is negative. Does the patient have a suspected source of infection? No. Patient's initial sepsis screen is negative. Care prior to arrival: None. 20:29 Method Of Arrival: Wheelchair aj1 20:29 Acuity: SMITH 4 aj1 Triage Assessment: 20:32 General: Appears in no apparent distress. uncomfortable, Behavior is calm, cooperative, aj1 appropriate for age. Pain: Complains of pain in right knee Pain currently is 10 out of 10 on a pain scale. Neuro: Level of Consciousness is awake, alert, obeys commands. Cardiovascular: Patient's skin is warm and dry. Respiratory: Airway is patent Respiratory effort is even, unlabored, Respiratory pattern is regular, symmetrical. Musculoskeletal: Range of motion: limited in right knee. Injury Description: Patient fell and landed on her knee. 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 - Social history:: Smoking status: Patient uses tobacco products, smokes one-half pack cigarettes per day. - Ebola Screening: : Patient denies travel to an Ebola-affected area in the 21 days before illness onset. - Family history:: not pertinent. - Hospitalizations: : No recent hospitalization is reported. Screenin:35 Abuse screen: Denies threats or abuse. Denies injuries from another. Nutritional kr2 screening: No deficits noted. Tuberculosis screening: No symptoms or risk factors identified. Fall Risk Gait- Impaired (20 pts.). Assessment: 20:35 General: Appears in no apparent distress. uncomfortable, well developed, Behavior is kr2 calm, cooperative, appropriate for age. Pain: Complains of pain in right knee Pain radiates to right leg Pain currently is 10 out of 10 on a pain scale. Quality of pain is described as aching, sharp, tender, Is continuous, Alleviated by rest, Aggravated by increased activity, weight bearing. Neuro: Level of Consciousness is awake, alert, obeys commands, Oriented to person, place, time, situation, Intact. Cardiovascular: Capillary refill < 3 seconds in bilateral fingers Patient's skin is warm and dry. Respiratory: Airway is patent Respiratory effort is even, unlabored, Respiratory pattern is regular, symmetrical. Derm: Skin is intact, is healthy with good turgor, Skin is pink, warm \\T\\ dry. Musculoskeletal: Circulation, motion, and sensation intact. Range of motion: limited in right knee Swelling present in right knee. 21:35 Reassessment: Patient appears in no apparent distress at this time. Patient and/or kr2 family updated on plan of care and expected duration. Pain level reassessed. Patient is alert, oriented x 3, equal unlabored respirations, skin warm/dry/pink. Patient states feeling better. 22:30 Reassessment: No changes from previously documented assessment. kr2 23:15 Reassessment: Patient appears in no apparent distress at this time. Patient and/or kr2 family updated on plan of care and expected duration. Pain level reassessed. Patient is alert, oriented x 3, equal unlabored respirations, skin warm/dry/pink. Knee immobilizer placed by Wellington Murphy. Crutch training performed by Wellington Murphy Patient states feeling better. Patient states symptoms have improved. Vital Signs: 20:32 BP 136 / 87; Pulse 80; Resp 18; Temp 98.7; Pulse Ox 100% on R/A; Weight 61.23 kg (R); aj1 Height 5 ft. 1 in. (154.94 cm) (R); Pain 10/10; 22:30 BP 130 / 88; Pulse 82; Resp 16; Pulse Ox 100% ; kr2 20:32 Body Mass Index 25.51 (61.23 kg, 154.94 cm) aj1 ED Course: 20:21 Patient arrived in ED. al2 20:32 Triage completed. aj1 20:32 Arm band placed on Patient placed in an exam room. aj1 20:35 Marty Cook MD is Attending Physician. rn 20:35 Patient has correct armband on for positive identification. Bed in low position. Call kr2 light in reach. Side rails up X 1. Pulse ox on. NIBP on. Door closed. Warm blanket given. Head of bed elevated. 21:49 XRAY Tib Fib RIGHT In Process Unspecified. EDMS 21:49 XRAY Knee RIGHT 3 view In Process Unspecified. EDMS 21:49 XRAY Femur RIGHT In Process Unspecified. EDMS 22:36 Yojana Zepeda RN is Primary Nurse. kr2 23:00 Crutch training done. Knee immobilizer applied on right knee. jp3 23:15 No provider procedures requiring assistance completed. Patient did not have IV access kr2 during this emergency room visit. Administered Medications: 21:01 Drug: [place] 10 mg-325 mg 1 tabs Route: PO; kr2 21:45 Follow up: Response: No adverse reaction; Pain is decreased kr2 21:01 Drug: Motrin 800 mg Route: PO; kr2 21:45 Follow up: Response: No adverse reaction; Pain is decreased kr2 Outcome: 22:32 Discharge ordered by . rn 23:15 Discharged to home with crutches, with family. kr2 23:15 Condition: good 23:15 Discharge instructions given to patient, family, Instructed on discharge instructions, follow up and referral plans. crutch walking, knee immobilizer use Demonstrated understanding of instructions, follow-up care, crutch walking, knee immobilizer 23:21 Patient left the ED. kr2 Signatures: Dispatcher [employer] EDMS Blanca Llamas RN RN aj1 Marty Cook MD MD rn Reaves, Karey, RN RN kr2 Marie Ching al2 Ronnie Samaniego jp3 Corrections: (The following items were deleted from the chart) 02/20 00:40 02/19 23:15 Discharge instructions given to patient, family, Instructed on discharge kr2 instructions, follow up and referral plans. medication usage, crutch walking, knee immobilizer use Demonstrated understanding of instructions, follow-up care, medications, crutch walking, knee immobilizer kr2
--- NOTE | 2018-02-19 22:32 | EDPHYS ---
Physician Documentation [facility] Name: Greta Bates Age: 42 yrs Sex: Female : 1975 Arrival Date: 02/19/2018 Time: 20:21 Bed 24 Private MD: ED Physician Marty Cook HPI: 02/19 20:53 This 42 yrs old Black Female presents to ER via Wheelchair with complaints of Leg rn Injury. 20:53 The patient presents with pain, that is acute. The complaints affect the right knee. rn Onset: The symptoms/episode began/occurred today. Modifying factors: The symptoms are alleviated by remaining still, the symptoms are aggravated by movement, weight bearing, bending knee. Severity of symptoms: At their worst the symptoms were moderate, in the emergency department the symptoms are unchanged. The patient has not experienced similar symptoms in the past. Reports twisting injury to right knee, tripped, fell, heard a pop, hurt knee and then fell. Ambulatory but limping. . 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 - Social history:: Smoking status: Patient uses tobacco products, smokes one-half pack cigarettes per day. - Ebola Screening: : Patient denies travel to an Ebola-affected area in the 21 days before illness onset. - Family history:: not pertinent. - Hospitalizations: : No recent hospitalization is reported. ROS: 20:53 Constitutional: Negative for fever, chills, and weight loss, MS/Extremity: + right knee rn and leg pain Skin: Negative for injury, rash, and discoloration, Neuro: Negative for headache, weakness, numbness, tingling, and seizure. Exam: 20:53 Constitutional: This is a well developed, well nourished patient who is awake, alert, rn and in no acute distress. MS/ Extremity: Pulses equal, no cyanosis. Neurovascular intact. Painful ROM right knee, no deformity. Vital Signs: 20:32 BP 136 / 87; Pulse 80; Resp 18; Temp 98.7; Pulse Ox 100% on R/A; Weight 61.23 kg (R); aj1 Height 5 ft. 1 in. (154.94 cm) (R); Pain 10/10; 22:30 BP 130 / 88; Pulse 82; Resp 16; Pulse Ox 100% ; kr2 20:32 Body Mass Index 25.51 (61.23 kg, 154.94 cm) aj1 MDM: 20:35 Patient medically screened. rn 22:31 Differential diagnosis: closed fracture, strain, sprain. Data reviewed: vital signs, rn nurses notes, radiologic studies, plain films, and as a result, I will discharge patient. Counseling: I had a detailed discussion with the patient and/or guardian regarding: the historical points, exam findings, and any diagnostic results supporting the discharge/admit diagnosis, radiology results, the need for outpatient follow up, to return to the emergency department if symptoms worsen or persist or if there are any questions or concerns that arise at home. Response to treatment: the patient's symptoms have mildly improved after treatment, and as a result, I will discharge patient. Special discussion: I discussed with the patient/guardian in detail that at this point there is no indication for admission to the hospital. It is understood, however, that if the symptoms persist or worsen the patient needs to return immediately for re-evaluation. 22:46 ED course: Pt with full extension of RLE, no clinical indication of patellar tendon rn disruption, increased ROM after pain meds.. 02/19 20:44 Order name: XRAY Tib Fib RIGHT; Complete Time: 22:41 rn 02/19 20:44 Order name: XRAY Knee RIGHT 3 view; Complete Time: 22:41 rn 02/19 20:44 Order name: XRAY Femur RIGHT; Complete Time: 22:41 rn 02/19 22:32 Order name: Knee Immobilizer; Complete Time: 22:56 rn 02/19 22:56 Order name: Crutches; Complete Time: 22:56 kr2 Administered Medications: 21:01 Drug: [place] 10 mg-325 mg 1 tabs Route: PO; kr2 21:45 Follow up: Response: No adverse reaction; Pain is decreased kr2 21:01 Drug: Motrin 800 mg Route: PO; kr2 21:45 Follow up: Response: No adverse reaction; Pain is decreased kr2 Disposition: 02/19/18 22:32 Discharged to Home. Impression: Sprain of unspecified site of right knee. - Condition is Stable. - Discharge Instructions: Knee Immobilizer, Knee Sprain. - Medication Reconciliation Form, Thank You Letter, Antibiotic Education, Prescription Opioid Use, Work release form form. - Follow up: Private Physician; When: As needed; Reason: Recheck today's complaints, Re-evaluation by your physician. - Problem is new. - Symptoms have improved. Signatures: Dispatcher [employer] EDMS Blanca Llamas RN RN aj1 Marty Cook MD MD rn Reaves, Karey, RN RN kr2 Corrections: (The following items were deleted from the chart) 23:21 22:32 02/19/2018 22:32 Discharged to Home. Impression: Sprain of unspecified site of kr2 right knee. Condition is Stable. Forms are Medication Reconciliation Form, Thank You Letter, Antibiotic Education, Prescription Opioid Use. Follow up: Private Physician; When: As needed; Reason: Recheck today's complaints, Re-evaluation by your physician. Problem is new. Symptoms have improved. rn
--- NOTE | 2018-02-19 22:37 | RAD REPORT ---
EXAM DESCRIPTION: RAD - Femur Right - 02/19/2018 9:55 pm CLINICAL HISTORY: Fall, leg pain is at COMPARISON: None. FINDINGS: No fracture, dislocation or periosteal reaction noted. No acute or suspicious bony finding . No air or foreign body in the soft tissues. IMPRESSION: Negative right femur examination.
--- NOTE | 2018-02-19 22:37 | RAD REPORT ---
EXAM DESCRIPTION: RAD - Tib Fib Right - 02/19/2018 9:54 pm CLINICAL HISTORY: Fall, leg pain COMPARISON: None. FINDINGS: No fracture is identified. There is no dislocation or periosteal reaction noted. No acute or suspicious bony finding. No foreign body or other soft tissue abnormality. IMPRESSION: Negative right tibia & fibula examination.
--- NOTE | 2018-02-19 22:38 | RAD REPORT ---
EXAM DESCRIPTION: RAD - Knee Right 3 View - 02/19/2018 9:57 pm COMPARISON: None. FINDINGS: No fracture, dislocation or periosteal reaction.No joint effusion seen. No joint space shante rowing. Patella [place]qu[place] configuration could be normal variant or indicate patella tendon disruption. Cor relation is needed with physical exam findings. IMPRESSION: No fracture or acute bone finding. Patella [place] configuration can be normal variant or indicate patella tendon disruption. Clinical concerns for internal derangement or occult bony injury could be further assessed with MR im aging.
== END 2018-02-19 23:21 | disposition home or self-care (01) ==
LOC: ER 20:17
DX: S83.91XA Sprain of unspecified site of right knee, initial encounter (principal); W01.0XXA Fall on same level from slipping, tripping and stumbling without subsequent striking against object, initial encounter; Y93.89 Activity, other specified; Y92.9 Unspecified place or not applicable
CPT/HCPCS: 99284